=== PATIENT | female | born 1950 | race Two or more races ===

== ENCOUNTER 2017-07-03 06:00 | Day surgery (SDC) | payer OTHER ==
[~2017-07-03] VITALS: Ht 154.9 cm; Wt 63.5 kg
[~2017-07-03 06:00] MED LIST: ASPIR-LOW81 MG; DULCOLAX5 MG; HYOSCYAMINE0.125 M1 SL; IMODIUM PO; INTESTINEX680 MG PO; NEURONTIN300 MG; TAGAMET300 MG; TRAM1TAB98 PO
[2017-07-04] MEDS ORDERED: RECTICARE30 GM TOP (08:40)
[2017-07-04] MEDS ORDERED: INTESTINEX680 M1 PO (08:40)
[2017-07-04] MEDS ORDERED: KETO10TA2 PO (08:40)
== END 2017-07-04 09:00 | disposition home or self-care (01) ==
LOC: CIR.AMB 06:00 → SURH 07:00 → EDSTATUS 09:15 → SURH 10:39 → O/R 10:39 → CIR.AMB 07-04 09:00 → SURH 07-04 10:14 → O/R 07-04 10:14
DX: N81.6 Rectocele (principal); Z86.711 Personal history of pulmonary embolism

== ENCOUNTER 2017-10-23 07:05 | Outpatient (CLI) | payer OTHER ==
[~2017-10-23 07:05] MED LIST changes: +INTESTINEX680 M1 PO; +KETO10TA2 PO; +RECTICARE30 GM TOP
== END 2017-10-23 07:07 | disposition home or self-care (01) ==
LOC: SONOGRAMA 07:05
DX: E05.10 Thyrotoxicosis with toxic single thyroid nodule without thyrotoxic crisis or storm (principal)

== ENCOUNTER 2018-03-29 06:37 | Day surgery (SDC) | payer OTHER | END 2018-03-29 10:15 | disposition home or self-care (01) | LOC: AMB-ENDOS 06:37 | DX: N81.6 Rectocele (principal) ==

== ENCOUNTER 2021-03-03 13:03 | Emergency (ER) | payer OTHER ==
[~2021-03-03] VITALS: Ht 154.9 cm; Wt 68.0 kg
[2021-03-03] MEDS ORDERED: TOPROL XL25 M1 (13:18)
[2021-03-03] MEDS ORDERED: ZETIA10 MG PO (13:19)
[2021-03-03] MEDS ORDERED: KETO10TA2 PO (16:19)
[2021-03-03] MEDS ORDERED: NORFLEX100MG PO (16:19)
== END 2021-03-03 16:23 | disposition home or self-care (01) ==
LOC: ER 13:03
DX: M79.662 Pain in left lower leg (principal)

== ENCOUNTER 2022-01-27 08:07 | Outpatient (CLI) | payer OTHER ==
[~2022-01-27 08:07] MED LIST changes: +NORFLEX100MG PO; +TOPROL XL25 M1; +ZETIA10 MG PO
== END 2022-01-27 08:11 | disposition home or self-care (01) ==
LOC: SONOGRAMA 08:07
PROVIDERS: ATTEND Pathology Anatomic Pathology & Clinical Pathology
DX: E04.1 Nontoxic single thyroid nodule (principal); D34 Benign neoplasm of thyroid gland

== ENCOUNTER 2022-08-22 07:27 | Outpatient (CLI) | payer OTHER | END 2022-08-22 07:33 | disposition home or self-care (01) | LOC: RX STUDY 07:27 | DX: R13.19 Other dysphagia (principal) ==

== ENCOUNTER 2024-09-05 10:37 | Outpatient (CLI) | payer OTHER | END 2024-09-05 10:39 | disposition home or self-care (01) | LOC: SONOGRAMA 10:37 | PROVIDERS: ATTEND Pathology Anatomic Pathology & Clinical Pathology | DX: D34 Benign neoplasm of thyroid gland (principal); E07.89 Other specified disorders of thyroid; E04.2 Nontoxic multinodular goiter ==

== ENCOUNTER 2025-02-10 09:59 | Emergency (ER) | payer OTHER ==
[~2025-02-10] VITALS: Ht 160 cm; Wt 72.6 kg
[2025-02-10] MEDS ORDERED: ORPHENADRINE CITRATE 30 MG/ML AMPUL IM ONE (12:30)
[2025-02-10] MEDS ORDERED: DEXAMETHASONE SODIUM PHOSPHATE 4 MG/ML VIAL IM ONE (12:30)
[2025-02-10] MEDS ORDERED: KETOROLAC TROMETHAMINE 30 MG VIAL IM ONE (12:30)
[2025-02-10] MEDS ORDERED: KETOROLAC TROMETHAMINE 30 MG VIAL ONE (14:04)
[2025-02-10] MEDS ORDERED: DEXAMETHASONE SODIUM PHOSPHATE 4 MG/ML VIAL ONE (14:05)
[2025-02-10] MEDS ORDERED: ORPHENADRINE CITRATE 30 MG/ML AMPUL ONE (14:05)
== END 2025-02-10 17:43 | disposition home or self-care (01) ==
LOC: ER 09:59
DX: M54.9 Dorsalgia, unspecified (principal); M54.50 Low back pain, unspecified; I10 Essential (primary) hypertension
CPT/HCPCS: 72100; 96372; 99283; J1100; J1885; J2360